=== PATIENT | male | born 1995 | race African-American/Black ===

== ENCOUNTER 2016-10-22 13:18 | Emergency (ER) | payer OTHER ==
[2016-10-22] MEDS ORDERED: SODIUM CHLORIDE 0.9% 1,000 ML IV ONE ×2 (14:29→14:36)
[2016-10-22] MEDS ORDERED: DEXAMETHASONE 10 MG/ML VIAL IVP STA (14:29)
[2016-10-22] MEDS ORDERED: KETOROLAC 60 MG/2 ML VIAL IVP STA (14:29)
[2016-10-22] MEDS ORDERED: KETOROLAC 30 MG/ML VIAL ONE (14:36)
[2016-10-22] MEDS ORDERED: DEXAMETHASONE 10 MG/ML VIAL ONE (14:36)
[2016-10-22] MEDS ORDERED: cefTRIAXone 1 GM in SODIUM CHLORIDE 0.9% MINIBAG 100 ML IV STA (15:03)
[2016-10-22] MEDS ORDERED: cefTRIAXone 1 GM VIAL ONE (15:07)
[2016-10-22] MEDS ORDERED: SODIUM CHLORIDE 0.9% MINIBAG 100 ML IV ONE (15:07)
== END 2016-10-22 16:06 | disposition home or self-care (01) ==
DX: J02.0 Streptococcal pharyngitis (principal); E86.0 Dehydration

== ENCOUNTER 2016-12-11 15:43 | Emergency (ER) | payer OTHER | END 2016-12-11 19:12 | disposition home or self-care (01) | DX: S06.0X0A Concussion without loss of consciousness, initial encounter (principal); W00.0XXA Fall on same level due to ice and snow, initial encounter ==

== ENCOUNTER 2017-09-27 08:49 | Emergency (ER) | payer OTHER ==
[2017-09-27] MEDS ORDERED: SODIUM CHLORIDE 0.9% 1,000 ML IV ONE (09:55)
[2017-09-27] MEDS ORDERED: ONDANSETRON 4 MG/2 ML VIAL IVP STA (09:55)
[2017-09-27 10:10] LABS: CALCIUM 9.4 mg/dL (8.5-10.3); POTASSIUM 3.7 mmol/L (3.5-5.0)
[2017-09-27 11:45] VITALS: BP 120/72
--- NOTE | 2017-09-27 12:08 | ED Physician Documentation ---
History of Present Illness - Stated complaint Stated Complaint: DIARRHEA/VOMITTING - Chief complaint Chief Complaint: General - Additonal information Additional information: hx from pt 22 AD [place] male went to a work part last night and had pizza and then a buffet with seafood and sushi shortly after he began to have unstoppable NVD initially some blood in the stool now not abd cramps Review of Systems Constitutional: denies: Fever, Chills GI: reports: Abdominal Pain, Nausea, Vomiting, Diarrhea, Bloody / black stool Immunocompromised: denies: Immunocompromised PD PAST MEDICAL HISTORY - Past Medical History Past Medical History: No - Past Surgical History Past Surgical History: No - Present Medications Home Medications: Ambulatory Orders Medication Instructions Recorded Confirmed Azithromycin [Zithromax] 500 mg PO DAILY #6 tablet 09/27/17 Ondansetron Odt [Zofran] 4 mg TL Q6H PRN #10 tablet 09/27/17 - Allergies Allergies/Adverse Reactions: Allergies Allergy/AdvReac Type Severity Reaction Status Date / Time No Known Drug Allergies Allergy Verified 09/27/17 09:17 - Social History Does the pt smoke?: No Smoking Status: Never smoker Does the pt drink ETOH?: No Does the pt have substance abuse?: No - Immunizations Immunizations are current?: Yes PD ED PE NORMAL - Vitals Vital signs reviewed: Yes - Cardiac Cardiac: RRR - Respiratory Respiratory: No respiratory distress, Clear bilaterally - Abdomen Abdomen: Non tender - Derm Derm: Normal color - Neuro Neuro: Alert and oriented X 3 Results - Vitals Vitals: Vital Signs - 24 hr 09/27/17 09/27/17 09/27/17 09:06 10:25 11:44 Temperature 36.5 C 36.2 C L 36.5 C Heart Rate 79 59 L 72 Respiratory 16 18 16 Rate Blood Pressure 144/85 H 134/86 H 120/72 O2 Saturation 97 100 100 Oxygen O2 Source Room air - Tele (time rhythm occurred) 1215 Telemetry / rhythm strip: Other (nl QT interval) - Labs Labs: Laboratory Tests 09/27/17 09:22 Sodium 137 Potassium 3.7 Chloride 102 Carbon Dioxide 25 Anion Gap 10.0 BUN 13 Creatinine 1.0 Estimated GFR (MDRD) 112 Glucose 102 H Calcium 9.4 PD MEDICAL DECISION MAKING - ED course ED course: NVD with bloody stool within few hr of buffet food likely food poisoning better after IVF unable to give stool sample Departure - Departure Disposition: 01 Home, Self Care Clinical Impression: Food poisoning Qualifiers: Encounter type: initial encounter Injury intent: accidental or unintentional Qualified Code(s): T62.91XA - Toxic effect of unspecified noxious substance eaten as food, accidental (unintentional), initial encounter Condition: Good Instructions: Foodborne Illness Follow-Up: PRIMO Hannonmayi [place] [Provider Group] Prescriptions: Azithromycin [Zithromax] 500 mg PO DAILY #6 tablet Ondansetron Odt [Zofran] 4 mg TL Q6H PRN #10 tablet PRN Reason: Nausea / Vomiting Forms: Activity restrictions
[2017-09-27] MEDS ORDERED: AZITHROMYCIN 250 MG TABLET PO STA (12:10)
== END 2017-09-27 12:30 | disposition home or self-care (01) ==
LOC: ED 08:49
DX: T62.91XA Toxic effect of unspecified noxious substance eaten as food, accidental (unintentional), initial encounter (principal); X58.XXXA Exposure to other specified factors, initial encounter
CPT/HCPCS: 36415; 80048; 96374; 99283; 99284; A9270; 84703

== ENCOUNTER 2017-12-20 11:20 | Outpatient (CLI) | payer OTHER | END 2017-12-20 11:21 | disposition home or self-care (01) | LOC: SC 11:20 | PROVIDERS: ATTEND Internal Medicine Pulmonary Disease | DX: G47.30 Sleep apnea, unspecified (principal); G47.10 Hypersomnia, unspecified; G47.8 Other sleep disorders; R06.83 Snoring | CPT/HCPCS: 99203; 99212 ==

== ENCOUNTER 2018-03-31 07:38 | Emergency (ER) | payer OTHER ==
[2018-03-31] MEDS ORDERED: ONDANSETRON ODT 4 MG TABLET TL STA (08:30)
[2018-03-31] MEDS ORDERED: IBUPROFEN 800 MG TABLET PO STA (08:30)
--- NOTE | 2018-03-31 08:34 | ED Physician Documentation ---
PD HPI HEAD INJURY - Stated complaint Stated Complaint: HEAD INJURY - Chief complaint Chief Complaint: Trauma Hd/Nk - History obtained from History obtained from: Patient - History of Present Illness Mechanism of head injury: Blow Where head injury occurred: Work Timing - onset: How many hours ago (1.5) Location of injury: Top Associated symptoms: No: LOC, Neck pain Similar symptoms before: Has not had sx before - Additional information Additional information: The patient is a 22-year-old active [employer] male who presents with frontal headache. His headache started after he banged his head on the door of an aircraft 1-1/2 hours prior to arrival. He denies loss of consciousness. He reports nausea, without vomiting. He also reports photosensitivity. He denies focal numbness or weakness. He has no history of similar headaches in the past. Medical history is significant for sickle cell trait. Review of Systems Constitutional: denies: Fever Eyes: reports: Photophobia Ears: denies: Tinnitus/ringing Nose: denies: Congestion Throat: denies: Sore throat Cardiac: denies: Chest pain / pressure Respiratory: denies: Dyspnea, Cough GI: reports: Nausea. denies: Abdominal Pain, Vomiting : denies: Dysuria, Incontinent Skin: reports: Abrasion (s) (scalp) Musculoskeletal: denies: Neck pain, Back pain Neurologic: reports: Headache, Head injury. denies: Focal weakness, Numbness, LOC PD PAST MEDICAL HISTORY - Past Medical History Respiratory: None Endocrine/Autoimmune: None Other Past Medical History: Sickle Cell Trait. - Past Surgical History Past Surgical History: No - Present Medications Home Medications: Ambulatory Orders Medication Instructions Recorded Confirmed Promethazine [Phenergan] 25 - 50 mg PO Q6H PRN #10 tab 03/31/18 buPROPion [Wellbutrin Sr] 1 tab PO DAILY 03/31/18 03/31/18 - Allergies Allergies/Adverse Reactions: Allergies Allergy/AdvReac Type Severity Reaction Status Date / Time No Known Drug Allergies Allergy Verified 03/31/18 07:56 - Social History Does the pt smoke?: No Smoking Status: Never smoker Does the pt drink ETOH?: No Does the pt have substance abuse?: No - Immunizations Immunizations are current?: Yes PD ED PE NORMAL - Vitals Vital signs reviewed: Yes (normal) - General General: Alert and oriented X 3, Well developed/nourished - HEENT HEENT: PERRL, EOMI, Ears normal, Pharynx benign, Other (Superficial abrasion on the vertex of the scalp, with associated tenderness to palpation. No bony step- off palpated.) - Neck Neck: Supple, no meningeal sign, No bony TTP, No adenopathy - Cardiac Cardiac: RRR, No murmur - Respiratory Respiratory: No respiratory distress, Clear bilaterally - Abdomen Abdomen: Soft, Non tender - Back Back: No spinal TTP - Derm Derm: No rash - Extremities Extremities: No tenderness to palpate - Neuro Neuro: Alert and oriented X 3, No motor deficit, No sensory deficit, Normal speech Results - Vitals Vitals: Vital Signs - 24 hr 03/31/18 03/31/18 07:53 09:45 Temperature 87 C H Heart Rate 79 73 Respiratory 16 18 Rate Blood Pressure 122/75 114/70 O2 Saturation 99 99 Oxygen O2 Source Room air - Rads (name of study) head CT w/o Radiology: Prelim report reviewed, EMP read contemporaneously, See rad report ( Negative head CT.) PD MEDICAL DECISION MAKING - ED course Complexity details: reviewed results, re-evaluated patient, considered differential, d/w patient ED course: The patient's presentation is significant for contusion to the scalp, with associated headache. CT scan of his head reveals no intracranial abnormality. Treatment in the emergency department included administration of ibuprofen 800 mg orally and ondansetron 4 mg orally. I discussed with him the results of the imaging study, symptomatic treatment and outpatient follow-up, as well as potentially worrisome signs or symptoms that should prompt reevaluation in the emergency department. - Sepsis Event Vital Signs: Vital Signs - 24 hr 03/31/18 03/31/18 07:53 09:45 Temperature 87 C H Heart Rate 79 73 Respiratory 16 18 Rate Blood Pressure 122/75 114/70 O2 Saturation 99 99 Oxygen O2 Source Room air Departure - Departure Disposition: 01 Home, Self Care Clinical Impression: Scalp contusion Qualifiers: Encounter type: initial encounter Qualified Code(s): S00.03XA - Contusion of scalp, initial encounter Condition: Stable Instructions: ED Head Injury Closed Follow-Up: Van Condon MD [Primary Care Provider] - Prescriptions: Promethazine [Phenergan] 25 - 50 mg PO Q6H PRN #10 tab PRN Reason: Nausea / Vomiting Comments: You can use ibuprofen, up to 100 mg needed for headache. You can use Phenergan as prescribed if needed for nausea. Follow up with your primary physician within 1 week if not completely resolved. Return to the emergency department if you develop increasing headache, persistent vomiting, or otherwise worsening symptoms. Forms: Activity restrictions
--- NOTE | 2018-03-31 09:36 | CT Report ---
Procedure Date: 03/31/2018 Accession Number: [id number] / [id number] Procedure: CT - Head W/O CPT Code: FULL RESULT: EXAM: CT HEAD EXAM DATE: 03/31/2018 08:59 AM. CLINICAL HISTORY: Closed head injury with headache and nausea. COMPARISON: None. TECHNIQUE: Multiaxial CT images were obtained from the foramen magnum to the vertex. Reformats: Coronal. IV contrast: None. In accordance with CT protocol optimization, one or more of the following dose reduction techniques were utilized for this exam: automated exposure control, adjustment of mA and/or KV based on patient size, or use of iterative reconstructive technique. FINDINGS: Parenchyma: No intraparenchymal hemorrhage. No evidence of mass, midline shift, or CT findings of infarction. Benjamin-white differentiation is distinct. Extraaxial Spaces: Normal for age. No subdural or epidural collections identified. Ventricles: Normal in size and position. Sinuses and Orbits: Imaged paranasal sinuses, orbits, and mastoids show no significant abnormality. Bones: No evidence of fracture or calvarial defect. IMPRESSION: Negative head CT. [facility]
[2018-03-31 09:57] VITALS: BP 114/70
== END 2018-03-31 10:18 | disposition home or self-care (01) ==
LOC: ED 07:38
DX: S00.01XA Abrasion of scalp, initial encounter (principal); S00.03XA Contusion of scalp, initial encounter; W22.8XXA Striking against or struck by other objects, initial encounter; Y99.1 Military activity; Y92.139 Unspecified place military base as the place of occurrence of the external cause; D57.3 Sickle-cell trait
CPT/HCPCS: 70450; 99283; A9270; Q0162

== ENCOUNTER 2018-04-03 20:21 | Outpatient (CLI) | payer OTHER | END 2018-04-03 20:22 | disposition home or self-care (01) | LOC: SC 20:21 | PROVIDERS: ATTEND Internal Medicine Pulmonary Disease | DX: R06.83 Snoring (principal); R09.02 Hypoxemia | CPT/HCPCS: 95810 ==

== ENCOUNTER 2018-04-21 08:55 | Outpatient (CLI) | payer OTHER | END 2018-04-21 08:56 | disposition home or self-care (01) | LOC: SC 08:55 | PROVIDERS: ATTEND Nurse Practitioner Family | DX: R06.83 Snoring (principal); G47.10 Hypersomnia, unspecified | CPT/HCPCS: 99212; 99214 ==